=== PATIENT | female | born 1965 | race Caucasian/White ===

== ENCOUNTER 2019-10-15 11:52 | Outpatient (CLI) | payer OTHER, SELFPAY ==
--- NOTE | 2019-10-15 13:30 | NEURO_ITS ---
TEST: ELECTROENCEPHALOGRAM DIAGNOSIS: SYNCOPE PATIENT NUMBER: [id number] EEG NUMBER: [id number] RECORDING DATE: 10/15/19 CONDITION OF RECORDING: Awake and drowsy EEG DESCRIPTION: Basic resting occipital frequency consists of small amount of fairly well organized low to medium voltage 8-9hz alpha mixed with low voltage 15-18hz beta. During drowsiness low voltage beta activity is seen diffusely mixed with waxing and waning posterior alpha rhythms. Photic stimulation produced normal drive. Nonparoxysmal. Nonfocal. Nonlateralizing. IMPRESSION: No significant abnormalities noted. MTDD
== END 2019-10-15 11:53 | disposition home or self-care (01) ==
PROVIDERS: PCP Physician Assistant; Visit Provider Psychiatry & Neurology Neurology
DX: R55 Syncope and collapse (principal)
CPT/HCPCS: 95816

== ENCOUNTER 2020-03-30 09:02 | Outpatient (CLI) | payer OTHER, SELFPAY | END 2020-03-30 09:03 | disposition home or self-care (01) | LOC: ANHAUDIO 09:04 | PROVIDERS: PCP Physician Assistant; Visit Provider Physician Assistant | DX: H90.3 Sensorineural hearing loss, bilateral (principal) | CPT/HCPCS: 92557; 92567 ==

== ENCOUNTER 2020-04-20 07:51 | Outpatient (RCR) | payer OTHER, SELFPAY | END 2020-04-20 23:59 | disposition home or self-care (01) | LOC: ANHAUDIO 07:51 | PROVIDERS: PCP Physician Assistant; Visit Provider Physician Assistant | DX: Z46.1 Encounter for fitting and adjustment of hearing aid (principal) | CPT/HCPCS: V5160; V5261 ==

== ENCOUNTER 2020-11-14 11:40 | Outpatient (RCR) | payer OTHER, SELFPAY | END 2020-11-14 23:59 | disposition home or self-care (01) | LOC: ANHAUDIO 11:40 | PROVIDERS: PCP Physician Assistant; Visit Provider Physician Assistant | DX: Z46.1 Encounter for fitting and adjustment of hearing aid (principal) | CPT/HCPCS: V5267 ==